=== PATIENT | male | born 1990 | race African-American/Black ===

== ENCOUNTER 2016-10-10 23:53 | Emergency (ER) | payer MEDICAID ==
[~2016-10-10] VITALS: Ht 182.9 cm; Wt 57.0 kg
[2016-10-11 04:24] VITALS: BP 118/73
== END 2016-10-11 04:24 | disposition home or self-care (01) ==
LOC: ER 23:54
DX: M25.512 Pain in left shoulder (principal); Z87.891 Personal history of nicotine dependence
CPT/HCPCS: 93005; 99283